=== PATIENT | female | born 1980 | race Caucasian/White ===

== ENCOUNTER 2017-01-14 15:00 | Emergency (ER) | payer OTHER ==
[~2017-01-14] VITALS: Ht 154.9 cm; Wt 67.1 kg
[~2017-01-14 15:00] MED LIST: COLACE250 MG PO; EFFEXOR-XR150 MG PO; MOTRIN800 MG PO; OMEGA-3 FISH1200 MG PO; PRENATAL VITAMI1 T10 PO; PROZAC10 MG PO; SEROQUEL100 MG PO
[2017-01-14 15:04] VITALS: BP 139/89
--- NOTE | 2017-01-14 18:16 | NUR ---
PT AMBULATED TO BED 7
[2017-01-14] MEDS ORDERED: NACL 0.9% 1,000 ML IV SCH (18:41)
--- NOTE | 2017-01-14 18:44 | NUR ---
PT BIBA FROM HOME C/O INTERMITTENT MID-STERNAL CHEST PAIN X 2 DAYS; PT GIVEN ASPIRIN 324 PO IN FIELD; HX: ANXIETY, HERNIA SURGERY (2016), TUBES TIED (2013).PT STATES SHE FEELS DIZZY;DENIES SOB;UNLABORED BREATHING W/ SYMMETRICAL CHEST EXPANSION;AAOX4;NO ACUTE DISTRESS NOTED AT THIS TIME;HOB ELEVATED;ALL MONITORS IN PLACED;POSITION FOR COMFORT;NEEDS ATTENDED;SAFETY MEASURES DONE;ER MD AT BEDSIDE.
[2017-01-14] MEDS ORDERED: KETOROLAC 30 MG/ML VIAL IVP ONE (18:45)
--- NOTE | 2017-01-14 19:24 | NUR ---
XRAY AT BEDSIDE
--- NOTE | 2017-01-14 19:35 | NUR ---
TRANSFER OF CARE GIVEN TO GEOVANNA
--- NOTE | 2017-01-14 19:36 | NUR ---
RECEIVED REPORT FROM KATARINA FLOYD FOR TRANSFER OF CARE.
[2017-01-14 19:57] VITALS: BP 128/78
--- NOTE | 2017-01-14 19:58 | NUR ---
Patient discharged with v/s stable. Written and verbal after care instructions given and explained. Patient alert, oriented and verbalized understanding of instructions. Ambulatory with steady gait. All questions addressed prior to discharge. ID band removed. Patient advised to follow up with PMD. Rx of XANAX AND TRAMADOL given. Patient educated on indication of medication including possible reaction and side effects. Opportunity to ask questions provided and answered.
--- NOTE | 2017-01-14 19:59 | NUR ---
PER ER MD. PATIENT TO NOT BE D/C AND TO WAIT BACK IN ROOM AT THIS TIME FOR MORE LAB RESULTS.
--- NOTE | 2017-01-14 20:33 | NUR ---
PER ER MD, PATIENT OK TO BE D/C. PT AMBULATED OFF THE UNIT WITH STEADY GAIT. NO SOB NOTED.
== END 2017-01-14 20:33 | disposition home or self-care (01) ==
LOC: MED 15:00
DX: M94.0 Chondrocostal junction syndrome [Tietze] (principal); I25.10 Atherosclerotic heart disease of native coronary artery without angina pectoris; K21.9 Gastro-esophageal reflux disease without esophagitis
CPT/HCPCS: 36415; 71010; 80053; 81001; 81025; 82150; 82553; 83690; 83880; 84484; 85025; 85379; 85610; 85730; 87086; 93005; 96374; 96375; 99285; J1885; J7030; Q0092

== ENCOUNTER 2017-02-01 16:06 | Emergency (ER) | payer OTHER ==
[~2017-02-01] VITALS: Ht 160 cm; Wt 65.8 kg
[2017-02-01 16:46] VITALS: BP 138/85
--- NOTE | 2017-02-01 17:17 | NUR ---
PATIENT TO BED 6 AT THIS TIME.
--- NOTE | 2017-02-01 17:20 | NUR ---
36/F C/O VAGINAL ITCHING, DISCHARGE, SWELLING X 1 WK.PT'S TRIED OVER THE COUNTER MONISTAT 3 DAY BUT NO SUCCESS. PATIENT DENIES N/V/D; SKIN IS PINK/WARM/DRY; AAOX4 WITH EVEN AND STEADY GAIT; LUNGS CLEAR BL; HR EVEN AND REGULAR; PT DENIES ANY FEVER, CP, SOB, OR COUGH AT THIS TIME; PATIENT STATES PAIN OF 6/10 AT THIS TIME; VSS; PATIENT POSITIONED FOR COMFORT; HOB ELEVATED; BEDRAILS UP X2; BED DOWN. ER MD MADE AWARE OF PT STATUS.
--- NOTE | 2017-02-01 17:20 | NUR ---
Note undone in EDM - 02/01/17 at 1914 by [email or web address] 36/F C/O VAGINAL ITCHING, DISCHARGE, SWELLING X 1 WK.PT'S TRIED OVER THE COUNTER MONISTAT 3 DAY BUT NO SUCCESS. PATIENT DENIES N/V/D; SKIN IS PINK/WARM/DRY; AAOX4 WITH EVEN AND STEADY GAIT; LUNGS CLEAR BL; HR EVEN AND REGULAR; PT DENIES ANY FEVER, CP, SOB, OR COUGH AT THIS TIME; PATIENT STATES PAIN OF 0/10 AT THIS TIME; VSS; PATIENT POSITIONED FOR COMFORT; HOB ELEVATED; BEDRAILS UP X2; BED DOWN. ER MD MADE AWARE OF PT STATUS.
[2017-02-01] MEDS ORDERED: cefTRIAXone 250 MG in LIDOCAINE 1% ED 0.9 ML IM ONE (18:00)
[2017-02-01] MEDS ORDERED: AZITHROMYCIN 250 MG TAB PO ONE (18:00)
[2017-02-01 18:29] VITALS: BP 126/84
--- NOTE | 2017-02-01 18:29 | NUR ---
Patient discharged with v/s stable. Written and verbal after care instructions given and explained. Patient alert, oriented and verbalized understanding of instructions. Ambulatory with steady gait. All questions addressed prior to discharge. ID band removed. Patient advised to follow up with PMD. Rx of DIFLUCAN given. Patient educated on indication of medication including possible reaction and side effects. Opportunity to ask questions provided and answered.
== END 2017-02-01 18:29 | disposition home or self-care (01) ==
LOC: MED 16:06
DX: N76.0 Acute vaginitis (principal); Z98.890 Other specified postprocedural states
CPT/HCPCS: 36415; 81002; 81025; 87210; 87491; 96372; 99284; J0696; J2001

== ENCOUNTER 2023-03-03 14:55 | Emergency (ER) | payer OTHER ==
[~2023-03-03] VITALS: Ht 157.5 cm; Wt 57.6 kg
[~2023-03-03 14:55] MED LIST changes: +COL250 PO; -COLACE250 MG PO; -EFFEXOR-XR150 MG PO; -MOTRIN800 MG PO; -OMEGA-3 FISH1200 MG PO; -PRENATAL VITAMI1 T10 PO; -PROZAC10 MG PO; +QUET100T PO; -SEROQUEL100 MG PO; +VENL150C4 PO
[2023-03-03 15:01] VITALS: BP 121/87
[2023-03-03] MEDS ORDERED: MICO45CR20 TOP ×2 (15:39→15:43)
[2023-03-03] MEDS ORDERED: SULF-58 PO ×2 (15:39→15:43)
[2023-03-03 15:47] VITALS: BP 121/87
--- NOTE | 2023-03-03 15:47 | NUR ---
Patient discharged with v/s stable. Written and verbal after care instructions given and explained. Patient verbalized understanding. Ambulatory with steady gait. All questions addressed prior to discharge. Advised to follow up with PMD.
== END 2023-03-03 15:47 | disposition home or self-care (01) ==
LOC: MED 14:55
DX: M54.50 Low back pain, unspecified (principal); Z48.00 Encounter for change or removal of nonsurgical wound dressing; Z79.899 Other long term (current) drug therapy
CPT/HCPCS: 99283

== ENCOUNTER 2024-01-19 15:10 | Emergency (ER) | payer OTHER ==
[~2024-01-19] VITALS: Ht 157.5 cm; Wt 57.6 kg
[~2024-01-19 15:10] MED LIST changes: +ALBU0.0912 IH; +FEXO1TAB16 PO; +MICO45CR20 TOP; +SULF-58 PO
[2024-01-19 15:23] VITALS: BP 127/74; PULSE 68; RESP 18; TEMP 98.3; O2SAT 99
[2024-01-19] MEDS ORDERED: CEPH500C16 PO (15:35)
[2024-01-19] MEDS ORDERED: IBUP-2213 PO (15:35)
[2024-01-19 15:47] VITALS: BP 127/74; PULSE 68; RESP 18; TEMP 98.3; O2SAT 99
== END 2024-01-19 15:43 | disposition home or self-care (01) ==
LOC: MED 15:10
DX: L03.311 Cellulitis of abdominal wall (principal); F31.9 Bipolar disorder, unspecified; I25.10 Atherosclerotic heart disease of native coronary artery without angina pectoris; Z79.899 Other long term (current) drug therapy
CPT/HCPCS: 99283